=== PATIENT | female | born 1960 | race African-American/Black ===

== ENCOUNTER 2017-05-12 13:14 | Emergency (ER) | payer BC, OTHER ==
[~2017-05-12] VITALS: Ht 172.7 cm; Wt 115.0 kg
[2017-05-12 13:16] VITALS: BP 0/0
[2017-05-12] MEDS ORDERED: SODIUM BICARBONATE 7.5% 0.9 MEQ/ML 50ML SYR IV ONE (13:40)
[2017-05-12] MEDS ORDERED: CALCIUM CHLORIDE 1GM/10ML SYR IV ONE (13:40)
[2017-05-12] MEDS ORDERED: EPINEPHRINE 0.1MG/ML (1:10,000) 10ML SYR ONE (13:40)
== END 2017-05-12 19:19 | disposition expired ==
LOC: ER 13:38
DX: I46.9 Cardiac arrest, cause unspecified (principal); Z86.711 Personal history of pulmonary embolism
CPT/HCPCS: 31500; 99291; J0171; J3490